=== PATIENT | female | born 1950 | race African-American/Black ===

== ENCOUNTER 2017-10-01 01:28 | Emergency (ER) | payer MEDICARE ==
[~2017-10-01] VITALS: Ht 162.6 cm; Wt 55.0 kg
[~2017-10-01 01:28] MED LIST: AMIT10TA13 PO; BACL10TA PO; CALC500T19 PO; CLON0.5T PO; CYAN1000P IM; ESTR.625 PO; FLON0.053; FORACAP INH; GABA300C3 PO; LINA290C PO; LISI-357 PO; MAGN400C2 PO; MORP1CAP63 PO; MSIR15 PO; MULTTAB33 PO; ONDA8TAB8 SL; PARO30TA PO; PROT40TA PO; ROPI0.5T PO; SUCR1TAB PO; SYSTSOL OP; Z.0.COMMODE-3:1; Z.0.WALKERFRONT; [UNRECOGNIZED DRUG - OTHER] PO
[2017-10-01 01:30] VITALS: BP 202/87; PULSE 86; RESP 22; TEMP 97.6; O2SAT 100
[2017-10-01 02:02] VITALS: BP 134/63; PULSE 74; RESP 20; O2SAT 100
[2017-10-01] MEDS ORDERED: SODIUM CHLOR 0.9% 1000 ML INJ 1,000 ML IV ONE (02:07)
[2017-10-01] MEDS ORDERED: diphenhydrAMINE HCL 50 MG/ML VIAL IVP ONE (02:15)
[2017-10-01] MEDS ORDERED: PROPARACAINE HCL 0.5% OPHT SOLN 15 ML BTL LEFT EYE ONE (02:15)
[2017-10-01] MEDS ORDERED: SODIUM CHLORIDE 0.9% FLUSH 10 ML FLUSH IVF PRN (02:15)
[2017-10-01] MEDS ORDERED: PROCHLORPERAZINE INJ 10 MG/2 ML VIAL IVP ONE (02:15)
[2017-10-01 02:21] VITALS: RESP 20; O2SAT 100
[2017-10-01 02:28] LABS: AUTOMATED NEUTROPHIL # 2.2 TH/MM3 (1.8-7.7); BASOPHIL % 0.6 % (0.0-2.0); EOSINOPHIL % 0.6 % (0.0-4.0); HEMATOCRIT 41.8 % (35.0-46.0); HEMOGLOBIN 13.9 GM/DL (11.6-15.3); LYMPH % 34.7 % (9.0-44.0); LYMPHOCYTE # 1.3 TH/MM3 (1.0-4.8); MEAN CELL VOLUME 94.2 FL (80.0-100.0); MEAN CORPUSCULAR HEMOGLOBIN 31.3 PG (27.0-34.0); MEAN CORPUSCULAR HGB CONC 33.2 % (32.0-36.0); MEAN PLATELET VOLUME 7.5 FL (7.0-11.0); MONO % 6.5 % (0.0-8.0); MONOCYTE # 0.2 TH/MM3 (0-0.9); NEUT % 57.6 % (16.0-70.0); PLATELET COUNT 234 TH/MM3 (150-450); RED BLOOD COUNT 4.44 MIL/MM3 (4.00-5.30); RED CELL DISTRIBUTION WIDTH 13.3 % (11.6-17.2); WHITE BLOOD COUNT 3.8 TH/MM3 (4.0-11.0)
--- NOTE | 2017-10-01 02:42 | RADRPT ---
EXAM DATE: 10/01/2017 2:37 AM EDT AGE/SEX: 67 years / Female INDICATIONS: Cephalgia. CLINICAL DATA: This is the patient's initial encounter. Patient reports that signs and symptoms have been present for 1 day and indicates a pain score of 10/10. MEDICAL/SURGICAL HISTORY: Cardiovascular disease. Gastroesophageal reflux disease. Diverticulitis . Asthma. Hypertension. Fusion, cervical. Fusion, lumbar. section. Hiatal hernia repair . Appendectomy. Hysterectomy. RADIATION DOSE: 56.35 CTDI (mGy) COMPARISON: No prior exams available for comparison. TECHNIQUE: CT of the head without contrast. Using automated exposure control and adjustment of the mA and/or kV according to patient size, radiation dose was kept as low as reasonably achievable to ob tain optimal diagnostic quality images. DICOM format image data is available electronically for revi ew and comparison. FINDINGS: Cerebrum: The ventricles are normal for age. No evidence of midline shift, mass lesion, hemorrhage or acute infarction. No extraaxial fluid collections are seen. Posterior Fossa: The cerebellum and brainstem are intact. The 4th ventricle is midline. The cerebe llopontine angle is unremarkable. Extracranial: The visualized portion of the orbits is intact. Skull: The calvaria is intact. No evidence of skull fracture. CONCLUSION: 1. Negative noncontrast CT Electronically signed by: Bebeto Acevedo MD 10/01/2017 2:41 AM EDT
--- NOTE | 2017-10-01 02:42 | PD ---
HPI Chief Complaint: Respiratory Symptoms Time Seen by Provider: 01:54 Travel History International Travel<30 days: No Contact w/Intl Traveler<30days: No Traveled to known affect area: No History of Present Illness HPI This 67-year-old woman who presents to the left-sided headache. She is a history of headaches, multiple different types including sinus headache, migraine she reports she has been having a lot of sinus headaches recently. She states that she got this headache couple hours prior to arrival, more abrupt in onset, not like her other multiple other forms of headache. Pain is in the left spiritism and behind the eye. Associated with some nausea. No vomiting. Was feeling well earlier today. History Past Medical History Narrative Medical Hypertension Chronic back problems, chronic opiates Hypothyroidism RLs GERD Social History Alcohol Use: No Tobacco Use: No Allergies-Medications (Allergen,Severity, Reaction): Coded Allergies: aspirin (Unverified Allergy, Severe, NOT TRUE ALLERGY PER MD-PT STATES SHE HAS STOMACH PROBL, 10/01/17) bisacodyl (Unverified Allergy, Severe, VIOLENT STOMACH ACHE AND SPASMS, ) rectal spasms clindamycin (Unverified Allergy, Severe, rash, 10/01/17) 01/15/13--ABD. PAIN doxycycline (Unverified Allergy, Severe, HIVES, 10/01/17) fish derived (Unverified Allergy, Severe, HIVES-RADIOACTIVE IODINE TABLETS ONLY, 10/01/17) flurazepam (Unverified Allergy, Severe, NIGHTMARES, 10/01/17) gentamicin (Unverified Allergy, Severe, PT DENIES ALLERGY TO THIS, 10/01/17 ) green pepper (Unverified Allergy, Severe, spasms, 10/01/17) iodine (Unverified Allergy, Severe, RADIOACTIVE IODINE TABLETS ONLY, ) ipratropium (Unverified Allergy, Severe, rash AND STOMACH PAIN, 10/01/17) minocycline (Unverified Allergy, Severe, HIVES, 10/01/17) onion (Unverified Allergy, Severe, spasms, 10/01/17) potassium iodide (Unverified Allergy, Severe, RADIOACTIVE IODINE TABLETS ONLY, 10/01/17) povidone-iodine (Unverified Allergy, Severe, RADIOACTIVE IODINE TABLETS ONLY, 10/01/17) rifampin (Unverified Allergy, Severe, Shortness of Breath, 10/01/17) 01/15/13--ABD. PAIN, VISUAL CHANGES shellfish derived (Unverified Allergy, Severe, Hives, 10/01/17) sodium iodide (Unverified Allergy, Severe, RADIOACTIVE IODINE TABLETS ONLY , 10/01/17) sodium iodide (Unverified Allergy, Severe, RADIOACTIVE IODINE TABLETS ONLY , 10/01/17) tigecycline (Unverified Allergy, Severe, HIVES, 10/01/17) diclofenac (Unverified Adverse Reaction, Severe, Nausea/Vomiting AND STOMACH PAIN, 10/01/17) etodolac (Unverified Adverse Reaction, Severe, Nausea/Vomiting AND STOMACH PAIN, 10/01/17) flurbiprofen (Unverified Adverse Reaction, Severe, Nausea/Vomiting AND STOMACH PAIN, 10/01/17) ibuprofen (Unverified Adverse Reaction, Severe, Nausea/Vomiting AND STOMACH PAIN, 10/01/17) indomethacin (Unverified Adverse Reaction, Severe, Nausea/Vomiting AND STOMACH PAIN, 10/01/17) ketoprofen (Unverified Adverse Reaction, Severe, Nausea/Vomiting AND STOMACH PAIN, 10/01/17) ketorolac (Unverified Adverse Reaction, Severe, Nausea/Vomiting AND STOMACH PAIN, 10/01/17) naproxen (Unverified Adverse Reaction, Severe, Nausea/Vomiting AND STOMACH PAIN, 10/01/17) oxaprozin (Unverified Adverse Reaction, Severe, Nausea/Vomiting AND STOMACH PAIN, 10/01/17) trimethobenzamide (Unverified Adverse Reaction, Severe, RECTAL SPASMS, ) zolpidem (Unverified Adverse Reaction, Severe, NIGHTMARES, 10/01/17) temazepam (Unverified Adverse Reaction, Mild, CAN ONLY TAKE 15MG TABLETS NOT 30 MG TABLETS, 10/01/17) Uncoded Allergies: ASPARTAME (Allergy, Unknown, UNKNOWN, 01/22/14) CONFIRMED 01/22/14 TM Reported Meds & Prescriptions Reported Meds & Active Scripts Active Reported Tylenol Extra Strength (Acetaminophen) 500 Mg Tablet 1 Tab PO Q8HR Tobramycin-Dexamethasone Opth Drops 0.3-0.1 % Susp 1 Drop EACH EYE PRN Systane Opth Drops (Polyethylene Glycol-Propylene Glycol Opth Drp) 0.4-0.3% Soln 1-2 Drop EACH EYE Q4-6H PRN Ropinirole 1 Mg Tab 1 Mg PO TID Ranitidine (Ranitidine HCl) 150 Mg Tab 150 Mg PO HS Premarin (Estrogens Conjugated) 0.625 Mg Tab 0.625 Mg PO DAILY Paroxetine (Paroxetine HCl) 10 Mg Tab 10 Mg PO DAILY Pantoprazole (Pantoprazole Sodium) 40 Mg Tab 40 Mg PO BID Multiple Vitamin 1 Tab 1 Tab PO DAILY Ms Contin (Morphine Sulfate) 30 Mg Tablet.er 15 Mg PO Q8HR Magnesium Oxide 400 Mg Tab 400 Mg PO DAILY Lyrica (Pregabalin) 100 Mg Cap 100 Mg PO HS Lisinopril 5 Mg Tab 5 Mg PO DAILY Lidocaine Topical (Lidocaine HCl) 5 % Oint 1 Applic TOPICAL DAILY PRN Levothyroxine (Levothyroxine Sodium) 25 Mcg Tab 25 Mcg PO DAILY Gabapentin 300 Mg Cap 300 Mg PO TID Folic Acid 0.4 Mg Tab 1 Gm PO DAILY Fluticasone Nasal [place] 50 Mcg/Act Naspr 50 Mcg EACH NARE 2 SPRAYS DAILY 50 mcg/spray Duloxetine DR (Duloxetine HCl) 30 Mg Capdr 30 Mg PO BID Diclo Gel Topical (Diclofenac Sodium) 1% Gel 4 Gm TOPICAL DAILY B-12 (Cyanocobalamin) 1,000 Mcg Subl 1,000 Mcg SL MONTHLY Benefiber (Wheat Dextrin) 3 Gram/3.8 Gram Powder Baclofen 10 Mg Tab 20 Mg PO Q8HR Aspirin 81 Mg Chew 81 Mg CHEW DAILY Airduo Respiclick Inh (Fluticasone-Salmeterol Inh) 113-14 Mcg Inh 1 Puff INH BID Review of Systems Except as stated in HPI: all other systems reviewed are Neg Physical Exam Narrative GENERAL: 67-year-old woman, no acute distress. Little bit frail appearing. SKIN: Focused skin assessment warm/dry. HEAD: Atraumatic. Normocephalic. EYES: Pupils equal and round. No scleral icterus. No injection or drainage. Checked pressures in the eyes. 18 in the right, 19 in the left. ENT: No nasal bleeding or discharge. Mucous membranes pink and moist. No appreciated temporal artery tenderness. NECK: Trachea midline. No JVD. No meningismus. CARDIOVASCULAR: Regular rate and rhythm. No murmur appreciated. RESPIRATORY: No accessory muscle use. Clear to auscultation. Breath sounds equal bilaterally. GASTROINTESTINAL: Abdomen soft, non-tender, nondistended. Hepatic and splenic margins not palpable. MUSCULOSKELETAL: No obvious deformities. NEUROLOGICAL: Awake and alert. No obvious cranial nerve deficits. Motor grossly within normal limits. Normal speech. PSYCHIATRIC: Appropriate mood and affect; insight and judgment normal. Data Data Last Documented VS Vital Signs Date Time Temp Pulse Resp B/P (MAP) Pulse Ox O2 Delivery O2 Flow Rate FiO2 10/01/17 02:21 20 100 Room Air 10/01/17 02:03 74 10/01/17 01:30 97.6 Orders Orders Complete Blood Count With Diff (10/01/17 02:07) Comprehensive Metabolic Panel (10/01/17 02:07) Westergren Sedimentation Rate (10/01/17 02:07) Ct Brain W/O Iv Contrast(Rout) (10/01/17 02:07) Ecg Monitoring (10/01/17 02:07) Iv Access Insert/Monitor (10/01/17 02:07) Oximetry (10/01/17 02:07) Sodium Chloride 0.9% Flush (Ns Flush) (10/01/17 02:15) Prochlorperazine Inj (Compazine Inj) (10/01/17 02:15) Diphenhydramine Inj (Benadryl Inj) (10/01/17 02:15) Sodium Chlor 0.9% 1000 Ml Inj (Ns 1000 M (10/01/17 02:07) Proparacaine 0.5% Opth Soln (Alcaine 0.5 (10/01/17 02:15) Diphenhydramine Inj (Benadryl Inj) (10/01/17 02:59) Acetaminophen 1000 Mg/100 Ml (Ofirmev 10 (10/01/17 03:30) Lorazepam Inj (Ativan Inj) (10/01/17 04:15) Labs Laboratory Tests Test 10/01/17 02:20 White Blood Count 3.8 TH/MM3 Red Blood Count 4.44 MIL/MM3 Hemoglobin 13.9 GM/DL Hematocrit 41.8 % Mean Corpuscular Volume 94.2 FL Mean Corpuscular Hemoglobin 31.3 PG Mean Corpuscular Hemoglobin Concent 33.2 % Red Cell Distribution Width 13.3 % Platelet Count 234 TH/MM3 Mean Platelet Volume 7.5 FL Neutrophils (%) (Auto) 57.6 % Lymphocytes (%) (Auto) 34.7 % Monocytes (%) (Auto) 6.5 % Eosinophils (%) (Auto) 0.6 % Basophils (%) (Auto) 0.6 % Neutrophils # (Auto) 2.2 TH/MM3 Lymphocytes # (Auto) 1.3 TH/MM3 Monocytes # (Auto) 0.2 TH/MM3 Eosinophils # (Auto) 0.0 TH/MM3 Basophils # (Auto) 0.0 TH/MM3 CBC Comment DIFF FINAL Differential Comment Erythrocyte Sedimentation Rate 12 mm/hr Blood Urea Nitrogen 16 MG/DL Creatinine 0.75 MG/DL Random Glucose 111 MG/DL Total Protein 8.1 GM/DL Albumin 4.1 GM/DL Calcium Level 9.3 MG/DL Alkaline Phosphatase 82 U/L Aspartate Amino Transf (AST/SGOT) 21 U/L Alanine Aminotransferase (ALT/SGPT) 26 U/L Total Bilirubin 0.4 MG/DL Sodium Level 140 MEQ/L Potassium Level 3.8 MEQ/L Chloride Level 102 MEQ/L Carbon Dioxide Level 27.8 MEQ/L Anion Gap 10 MEQ/L Estimat Glomerular Filtration Rate 94 ML/MIN MDM Medical Decision Making Medical Screen Exam Complete: Yes Emergency Medical Condition: Yes Interpretation(s) LABS: CBC is unremarkable. Sed rate [address] head negative Differential Diagnosis Headache, GCA, glaucoma, tension headache, migraine,, other Narrative Course Medical decision making Generally well-appearing 67-year-old of left-sided headache. History of severe frequent headaches in the past, but this feels different. It is unilateral. Will check a sed rate. I will see any temporal artery tenderness. Will also check her eye pressures. Compazine for pain. Reassess. FINAL: Patient developed some restlessness and jerking, likely from the Compazine. She was given additional dose of Benadryl, and then 1 dose of Ativan. Headache was much improved. She rested some. She will but at this time is safe for discharge. No evidence of GCA, ICH, glaucoma, or other dangerous cause for the headache. Diagnosis Primary Impression: Headache Patient Instructions: General Instructions Additional Instructions: Follow-up with her primary doctor the next 2-4 days if you do not feel completely well. Return to the emergency department for any new or worsening symptoms Med/Other Pt SpecificInfo: No Change to Meds Disposition: 01 DISCHARGE HOME Condition: Stable Donal Ayoub MD Oct 01, 2017 02:42
[2017-10-01 02:47] LABS: ALBUMIN 4.1 GM/DL (3.4-5.0); ALT (GPT) 26 U/L (10-53); AST (GOT) 21 U/L (15-37); BICARBONATE 27.8 MEQ/L (21.0-32.0); BLOOD UREA NITROGEN 16 MG/DL (7-18); CALCIUM 9.3 MG/DL (8.5-10.1); CHLORIDE 102 MEQ/L (98-107); CREATININE 0.75 MG/DL (0.50-1.00); GLOMERULAR FILTRATION RATE 94 ML/MIN (>89); GLUCOSE,RANDOM 111 MG/DL (74-106); SODIUM (NA) 140 MEQ/L (136-145)
[2017-10-01 02:50] LABS: ALKALINE PHOSPHATASE 82 U/L (45-117); TOTAL BILIRUBIN ADULT 0.4 MG/DL (0.2-1.0); TOTAL PROTEIN 8.1 GM/DL (6.4-8.2)
[2017-10-01] MEDS ORDERED: CYAN100025 SL (02:52)
[2017-10-01] MEDS ORDERED: FLUT1AER7 INH (02:52)
[2017-10-01] MEDS ORDERED: BACL10TA PO (02:52)
[2017-10-01] MEDS ORDERED: DICL1KIT5 TOPICAL (02:52)
[2017-10-01] MEDS ORDERED: ASPI-516 CHEW (02:52)
[2017-10-01] MEDS ORDERED: WHEA1POW9 (02:52)
[2017-10-01] MEDS ORDERED: diphenhydrAMINE HCL 50 MG/ML VIAL IV PUSH STA (02:59)
[2017-10-01] MEDS ORDERED: ACETAMINOPHEN 1000 MG/100 ML 100 ML IV ONE (03:30)
[2017-10-01] MEDS ORDERED: PANT40TA3 PO (03:51)
[2017-10-01] MEDS ORDERED: ESTR.625 PO (03:51)
[2017-10-01] MEDS ORDERED: ROPI1TAB PO (03:51)
[2017-10-01] MEDS ORDERED: LYRI100C PO (03:51)
[2017-10-01] MEDS ORDERED: MS C30TA5 PO (03:51)
[2017-10-01] MEDS ORDERED: RANI150T PO (03:51)
[2017-10-01] MEDS ORDERED: MAGN400T2 PO (03:51)
[2017-10-01] MEDS ORDERED: GABA300C5 PO (03:51)
[2017-10-01] MEDS ORDERED: DULO1CAP2 PO (03:51)
[2017-10-01] MEDS ORDERED: LISI-519 PO (03:51)
[2017-10-01] MEDS ORDERED: MULTTAB67 PO (03:51)
[2017-10-01] MEDS ORDERED: ACET-822 PO (03:51)
[2017-10-01] MEDS ORDERED: FLUT50SP EACH NARE (03:51)
[2017-10-01] MEDS ORDERED: PARO10TA2 PO (03:51)
[2017-10-01] MEDS ORDERED: LIDO5%T TOPICAL (03:51)
[2017-10-01] MEDS ORDERED: TRAZ100T10 PO (03:51)
[2017-10-01] MEDS ORDERED: TOBRSUS9 EACH EYE (03:51)
[2017-10-01] MEDS ORDERED: SYSTSOL EACH EYE (03:51)
[2017-10-01] MEDS ORDERED: FOLI400T PO (03:51)
[2017-10-01] MEDS ORDERED: LEVO25TA4 PO (03:51)
[2017-10-01] MEDS ORDERED: LORazepam 2 MG/ML VIAL IV PUSH ONE (04:15)
== END 2017-10-01 06:35 | disposition home or self-care (01) ==
LOC: NEPC 01:28
DX: R51 Headache (principal); R11.0 Nausea; I10 Essential (primary) hypertension; E03.9 Hypothyroidism, unspecified; K21.9 Gastro-esophageal reflux disease without esophagitis; Z87.39 Personal history of other diseases of the musculoskeletal system and connective tissue
CPT/HCPCS: 70450; 80053; 85025; 85652; 96361; 96374; 96375; 96376; 99284; J0131; J0780; J1200; J2060; J7030